=== PATIENT | male | born 1980 ===

== ENCOUNTER 2017-04-15 06:01 | Day surgery (SDC) | payer OTHER ==
[2017-04-07 14:53] VITALS: BMI 26.5
[2017-04-15] MEDS ORDERED: Lactated Ringer's 1,000 ML IV ONE (06:52)
[2017-04-15] MEDS ORDERED: Lidocaine 4% (Laryng-O-Jet) Kit MM ONE (07:10)
[2017-04-15] MEDS ORDERED: Succinylcholine 200 mg/10 ml Inj IV ONE (07:13)
[2017-04-15] MEDS ORDERED: Propofol 10 mg/ml Inj (20 ML) ONE (07:13)
[2017-04-15] MEDS ORDERED: Ropivacaine 0.5% 30ML IV ONE (07:18)
[2017-04-15] MEDS ORDERED: Midazolam 2 MG/2 ML VIAL ONE (07:42)
[2017-04-15] MEDS ORDERED: Rocuronium 10 mg/ml (5 ml) ONE (07:54)
[2017-04-15] MEDS ORDERED: Dexamethasone 4 mg/1 ml ONE (08:01)
[2017-04-15] MEDS ORDERED: Lidocaine/Epi 1% 1:100000 20 ML IJ ONE (08:30)
[2017-04-15] MEDS ORDERED: Lidocaine 1% w Epi 1:100,000 Inj ONE (08:33)
[2017-04-15] MEDS ORDERED: Neostigmine Methylsulfate 2 MG/2 ML ML IV ONE (09:14)
[2017-04-15] MEDS ORDERED: Liquid Adhesive TOP ONE ×2 (09:19→09:25)
[2017-04-15] MEDS ORDERED: Bupivacaine HCl 0.5% PF (30 ml) Inj IJ ONE (09:26)
--- NOTE | 2017-04-15 09:48 | PCM.SURG1 ---
Surgeon's Initial Post Op Note - Surgeon's Notes Surgeon: Faustino Oakley MD [place] Pilot: Jitendra Ly MD; Rosa Guzman PA-C Type of Anesthesia: General Endo, Other (post-op fascia block ) Pre-Operative Diagnosis: Right adductor tendon tear Operative Findings: see op report Post-Operative Diagnosis: Same as pre-op dx Operation Performed: Open Repair of right adductor tendon tear Specimen/Specimens Removed: none Estimated Blood Loss: EBL {In ML}: 25 Date of Surgery/Procedure: 04/15/17 Time of Surgery/Procedure: 08:00
[2017-04-15] MEDS ORDERED: Oxycodone/Acetaminophen 5/325 mg Tab PO PRN (09:51)
[2017-04-15] MEDS ORDERED: HYDROmorphone 0.5 mg/0.5 ml ISec IVP PRN (10:06)
[2017-04-15] MEDS ORDERED: Lactated Ringer's 1,000 ML IV SCH (10:06)
[2017-04-15 10:36] VITALS: RESP 20
--- NOTE | 2017-04-15 11:35 | RAD ---
PROCEDURE: Intraoperative Fluoroscopy. HISTORY: RT HIP ADDUCTOR TENDON TEAR FINDINGS: Fluoroscopic assistance was provided. 26.3 seconds of fluoroscopy time utilized during this procedure. . Please refer to the operative
[2017-04-15 12:08] VITALS: BP 115/73; PULSE 82; TEMP 98; O2SAT 95
--- NOTE | 2017-04-15 14:52 | PCM.ANESB5 ---
Transverse Abdominis Block - Transverse Abdominis Plane Date of Procedure: 04/15/17 Anesthesiologist: Kathy Pre-Procedure Diagnosis: Adductor tendon avulsion Post-Procedure Diagnosis: same Procedure Performed: Transverse Abdominis Plane Nerve Block Right - Procedure Transverse Abdominis Plane Nerve Block: The procedure was explained to the patient that it is for post-operative pain management and would be performed after surgery. Consent was obtained prior to surgery after a thorough discussion with the patient regarding the benefits and possible complications of transverse abdominis plane block. After the surgery had concluded and before the patient emerged from general anesthesia, time-out was held with the circulating nurse to re-confirm the appropriate block. With the patient in supine position, the ultrasound probe was placed transverse to the abdominal wall at the mid-axillary line above the iliac crest of the appropriate side. The skin, subcutaneous tissue, fat, external oblique muscle, internal oblique muscle, and the transverse abdominis muscle were identified. The general area of the block site was then prepped with Betadine three times. At this point, a # 21-gauge Stimuplex 4-inch needle was inserted posterior to and in plane with the ultrasound probe and directed anteriorly. Needle was advanced under direct ultrasound visualization until it reached the plane between the internal oblique and transverse abdominis muscles. After appropriate placement, 2mL of local anesthetic solution was injected. When the transverse abdominis plane was observed expanding in an ellipsoid way, the rest of the solution was slowly injected. A total of __20____ mL of ___0.5__ % __ropivicaine____ was used for this block. The needle was then removed and sterile dressing was applied. The patient had stable vital signs throughout and had no untoward complications after emergence from general anesthesia in the recovery room.
--- NOTE | 2017-04-15 23:50 | OP ---
PROCEDURE DATE: 04/15/2017 PREOPERATIVE DIAGNOSIS: Right hip traumatic adductor tear. POSTOPERATIVE DIAGNOSIS: Right hip traumatic adductor tear. PROCEDURES: 1. Right hip open adductor repair. 2. Fluoroscopic use under 1 hour, 76,000. 3. Hip abduction sling, CPT code L1686. SURGEON: Faustino Oakley MD [employer] FIELD EXAMINER: Jitendra Ly MD TYPE OF ANESTHESIA: General and local block. ESTIMATED BLOOD LOSS: 30 mL. COMPLICATIONS: None. 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 The patient was seen by me in the office which showed an extensive ecchymosis. The patient's MRI head showed a full-thickness tear of the adductor longus tendon with retraction of 2 cm. The patient was initially treated with conservative management; however, his symptoms and weakness did not improve. 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 I reviewed the risks and benefits of the surgery with the patient in detail. The risks included but not limited to bleeding, infection, nerve vessel damage, peroneal nerve injury, testicular injury, other organ injury, failure of repair, stiffness, and blood clots among others. Patient fully understood the risks and benefits and opted to proceed. DESCRIPTION OF PROCEDURE: On the day of the surgery, the patient was admitted to preoperative holding area. A laterality sheet was completed confirming patient's right hip to be correct operative site. The patient's right hip was marked. The patient was brought into the operating room table. He underwent general anesthesia. He was given appropriate prophylactic antibiotics. First, a time-out was completed, confirming the patient's right hip to be the correct operative site. A 5-cm bikini line incision was made on the inferior portion. Dr. Ly was present, who is a general surgeon and a plastic surgeon, who aided in a complex dissection and retraction of the critical neurovascular structure. Adductor longus tendon was identified, was found to be fully torn and retracted about 2 cm, it was scarred in to the neighboring muscles. Using careful dissection, the adductor longus tendon was dissected from the scar tissue and all the adhesions were released first. Next, the insertion point at the pubic symphysis were identified under direct fluoroscopic guidance, and using an elevator all the soft tissue was removed from the pubic symphysis at the bony attachment, and using the direct fluoroscopic guidance, two Arthrex 3.0 mm suture tags were placed under direct fluoroscopic positioning. Next, the torn edges of the tendon were debrided of any degenerative tissue and the tendon was whipstitched and then additional sutures were placed using the suture from the suture tags in a locking fashion and tendon was reduced to its anatomic position. Final radiographs were taken confirming anatomic positioning of the repair. Finally, the wound was copiously irrigated. The deep tissue was closed using 2-0 Vicryl and skin was closed using Monocryl sutures. There were no complications. Dr. Jitendra Ly, is a board-certified plastic surgeon and a general surgeon who was present for the entirety of the case. His participation was crucial in careful dissection of the critical neurovascular structure, appropriate dissection, implant positioning and successful completion of the surgery. Afterwards, the patient was extubated. He was transferred to the stretcher and taken to the recovery room. He was placed on a hip adduction brace for protection and made toe-touch weightbearing. Faustino Oakley MD
== END 2017-04-15 09:49 | disposition home or self-care (01) ==
LOC: H.OPSURG 06:01
PROVIDERS: ATTEND Orthopaedic Surgery
DX: S76.219A Strain of adductor muscle, fascia and tendon of unspecified thigh, initial encounter (principal); X58.XXXA Exposure to other specified factors, initial encounter
CPT/HCPCS: 20999; 64486; 97116; 97161; C1713; G8978; G8979; G8980; J0330; J0690; J1100; J2001; J2250; J2405; J2704; J2710; J2765; J3010; J7120